=== PATIENT | female | born 1990 | race Caucasian/White ===

== ENCOUNTER 2021-06-12 11:36 | Inpatient (IN) | payer BC ==
[2021-06-12] MEDS ORDERED: Oxytocin/0.9 % Sodium Chloride 30 UNIT/500 ML BAG IV SCH ×2 (13:30→13:45)
[2021-06-12] MEDS: Lactated Ringers 1,000 ML IV SCH ×2 (13:30→23:14)
[2021-06-12] MEDS ORDERED: Misoprostol 25 MCG (1/4 of 100 MCG) Tab VAG PRN (13:30)
[2021-06-12] MEDS ORDERED: Terbutaline 1 MG/ML SDV SUBCUT PRN (13:30)
[2021-06-12] MEDS ORDERED: Butorphanol 1 MG/ML SDV IVPUSH PRN (13:42)
[2021-06-12] MEDS ORDERED: Ondansetron 4 MG/2 ML SDV IVPUSH PRN (13:42)
[2021-06-12] MEDS ORDERED: Carboprost Tromethamine 250 MCG/1 ML Amp IM PRN (13:42)
[2021-06-12] MEDS ORDERED: Nalbuphine 10 MG/1 ML Vial IVPUSH PRN (13:42)
[2021-06-12] MEDS ORDERED: Misoprostol 200 MCG Tab PO PRN (13:42)
[2021-06-12] MEDS ORDERED: Tranexamic Acid 1,000 MG in Sodium Chloride 0.9% 100 ML IV PRN (13:42)
[2021-06-12] MEDS ORDERED: Methylergonovine 0.2 MG/1 ML Amp IM PRN (13:42)
[2021-06-12] MEDS ORDERED: Water For Irrigation,Sterile 1,000 ML Container IRR PRN (13:42)
[2021-06-12] MEDS ORDERED: Lidocaine 1% 20 ML MDV INJECT PRN (13:46)
[2021-06-12] MEDS ORDERED: Misoprostol 25 MCG (1/4 of 100 MCG) Tab PO ONE (14:20)
[2021-06-12] MEDS: Misoprostol 25 MCG (1/4 of 100 MCG) Tab VAG PRN ×2 (14:37→18:31)
[2021-06-12] MEDS ORDERED: ePHEDrine 50 MG/ML SDV IVPUSH PRN ×2 (15:31)
[2021-06-12] MEDS ORDERED: Misoprostol 25 MCG (1/4 of 100 MCG) Tab PO PRN (18:30)
[2021-06-13] MEDS: Lactated Ringers 1,000 ML IV SCH ×2 (04:54→14:09)
[2021-06-13] MEDS: Ropivacaine 200 MG in Premix Bag 1 BAG EPIDUR SCH ×2 (05:46→10:42)
[2021-06-13] MEDS ORDERED: oxyCODONE 5 MG Tab PO PRN (12:33)
[2021-06-13] MEDS ORDERED: Acetaminophen 500 MG Tab PO PRN (12:33)
[2021-06-13] MEDS ORDERED: Ibuprofen 800 MG Tab PO PRN (12:33)
[2021-06-13] MEDS ORDERED: Lanolin 100% Cream 7 GM Tube TOP PRN (12:33)
[2021-06-13] MEDS ORDERED: Benzocaine/Menthol 20%-0.5% Spray 78 GM Cannister TOP PRN (12:33)
[2021-06-13] MEDS ORDERED: Ibuprofen 400 MG Tab PO PRN (12:33)
[2021-06-13] MEDS ORDERED: Witch Hazel Medicated Pads 40/Jar TOP PRN (12:33)
[2021-06-13] MEDS ORDERED: Bisacodyl 10 MG Supp RECTAL PRN (12:33)
[2021-06-13] MEDS ORDERED: Tranexamic Acid 1,000 MG in Sodium Chloride 0.9% 100 ML IV PRN (14:02)
[2021-06-13 14:36] LABS: BLOOD UREA NITROGEN,BUN 5 mg/dL (7.0-18.0); CHLORIDE,CL 103 mmol/L (98-107); GLUCOSE RANDOM 86 mg/dL (74-106); POTASSIUM,K 3.8 mmol/L (3.5-5.1); SODIUM,NA 137 mmol/L (136-145)
[2021-06-13] MEDS: Acetaminophen 500 MG Tab PO PRN ×2 (15:07→21:52)
[2021-06-13] MEDS ORDERED: Levothyroxine 100 MCG Tab PO SCH (21:00)
[2021-06-13] MEDS: Docusate Sodium 100 MG Cap PO PRN (21:54)
[2021-06-14] MEDS: Acetaminophen 500 MG Tab PO PRN (11:44)
[2021-06-14] MEDS ORDERED: Levothyroxine 100 MCG Tab PO SCH (12:00)
[2021-06-14] MEDS: Docusate Sodium 100 MG Cap PO PRN (21:13)
== END 2021-06-15 12:11 | disposition home or self-care (01) | DRG 560 ==
LOC: MW.OBCHECK 11:36 → MW.OB 12:33 → OBSVTOIN 06-13 12:33 → MW.OB 06-13 15:30
PROVIDERS: ADMIT Obstetrics & Gynecology; ATTEND Obstetrics & Gynecology
PROC: 10D07Z6 Extraction of Products of Conception, Vacuum, Via Natural or Artificial Opening (ICD-10-PCS; principal; 2021-06-13)
PROC: 10907ZC Drainage of Amniotic Fluid, Therapeutic from Products of Conception, Via Natural or Artificial Opening (ICD-10-PCS; 2021-06-13)
PROC: 3E0P7VZ Introduction of Hormone into Female Reproductive, Via Natural or Artificial Opening (ICD-10-PCS; 2021-06-13)
PROC: 3E033VJ Introduction of Other Hormone into Peripheral Vein, Percutaneous Approach (ICD-10-PCS; 2021-06-13)
PROC: 0W8NXZZ Division of Female Perineum, External Approach (ICD-10-PCS; 2021-06-13)
PROC: 3E0R3BZ Introduction of Anesthetic Agent into Spinal Canal, Percutaneous Approach (ICD-10-PCS; 2021-06-13)
PROC: 00HU33Z Insertion of Infusion Device into Spinal Canal, Percutaneous Approach (ICD-10-PCS; 2021-06-13)
DX: O48.0 Post-term pregnancy (principal); Z3A.41 41 weeks gestation of pregnancy; Z37.0 Single live birth; O99.284 Endocrine, nutritional and metabolic diseases complicating childbirth; E03.9 Hypothyroidism, unspecified; Z20.822 Contact with and (suspected) exposure to COVID-19
CPT/HCPCS: 01967; 36415; 51702; 59025; 59409; 80053; 84112; 85014; 85018; 85027; 85384; 85610; 86592; 86850; 86900; 86901; 86920; A9270-GY; J0595; J2210; J2405; J2590; J2795; J7120; U0002

== ENCOUNTER 2023-02-05 11:58 | Inpatient (IN) | payer BC ==
[2023-02-05] MEDS ORDERED: Terbutaline 1 MG/ML SDV SUBCUT PRN ×2 (12:52→22:59)
[2023-02-05] MEDS ORDERED: Sodium Chloride 0.9% 20 ML SDV IV PRN (12:52)
[2023-02-05] MEDS ORDERED: Sodium Chloride 0.9% 2.5 ML Syringe FLUSH PRN (12:52)
[2023-02-05] MEDS ORDERED: Misoprostol 25 MCG (1/4 of 100 MCG) Tab VAG PRN ×2 (12:52)
[2023-02-05] MEDS ORDERED: Butorphanol 1 MG/ML SDV IVPUSH PRN (12:52)
[2023-02-05] MEDS ORDERED: Water For Irrigation,Sterile 1,000 ML Container IRR PRN (12:52)
[2023-02-05] MEDS ORDERED: Misoprostol 200 MCG Tab PO PRN (12:52)
[2023-02-05] MEDS ORDERED: Carboprost Tromethamine 250 MCG/1 mL Vial IM PRN (12:52)
[2023-02-05] MEDS ORDERED: Lidocaine 1% 50 ML MDV INJECT PRN (12:52)
[2023-02-05] MEDS ORDERED: Methylergonovine 0.2 MG/1 ML Amp IM PRN (12:52)
[2023-02-05] MEDS ORDERED: Tranexamic Acid IN NACL,ISO-OS 1,000 MG in Premix Bag 1 BAG IV PRN ×2 (12:52)
[2023-02-05] MEDS ORDERED: Sodium Chloride 0.9% 10 ML Syringe FLUSH PRN (12:52)
[2023-02-05] MEDS ORDERED: Oxytocin/0.9 % Sodium Chloride 30 UNIT/500 ML BAG IV SCH ×2 (13:00→23:00)
[2023-02-05] MEDS ORDERED: Nalbuphine 10 MG/0.5 ML Syringe IVPUSH PRN (13:19)
[2023-02-05] MEDS ORDERED: Ondansetron 4 MG/2 ML SDV IVPUSH PRN (13:22)
[2023-02-05] MEDS: Lactated Ringers 1,000 ML IV SCH ×2 (14:00→23:06)
[2023-02-05 14:08] LABS: HEMATOCRIT 37.5 % (37.0-47.0); HEMOGLOBIN 12.5 g/dL (12.0-16.0); MEAN CORPUSCULAR HGB CONC 33.3 g/dL (32.0-36.0); MEAN CORPUSCULAR VOLUME 89.9 fL (83.0-99.0); MEAN PLATELET VOLUME 9.8 fL (9.4-12.3); PLATELET COUNT,PLT 230 K/uL (150-400); RED BLOOD CELL COUNT 4.17 M/uL (4.10-5.30); WHITE BLOOD CELL COUNT,WBC 11.66 K/uL (3.9-11.3)
[2023-02-05] MEDS ORDERED: ePHEDrine 50 MG/ML SDV IVPUSH PRN ×2 (14:43)
[2023-02-05] MEDS ORDERED: Ropivacaine HCl/PF 400 MG in Premix Bag 1 BAG EPIDUR SCH (14:45)
[2023-02-06] MEDS ORDERED: Dexmedetomidine 200 MCG/2 ML SDV ONE (00:13)
[2023-02-06] MEDS: Phenylephrine HCl 0.5 MG/5 ML AMP IVPUSH PRN ×6 (00:37→03:03)
[2023-02-06] MEDS: Lactated Ringers 1,000 ML IV SCH (01:33)
[2023-02-06] MEDS ORDERED: Ibuprofen 400 MG Tab PO PRN (06:56)
[2023-02-06] MEDS ORDERED: Methylergonovine 0.2 MG/1 ML Amp IM PRN (06:56)
[2023-02-06] MEDS ORDERED: Docusate Sodium 100 MG Cap PO PRN (06:56)
[2023-02-06] MEDS ORDERED: Witch Hazel Medicated Pads 40/Jar TOP PRN (06:56)
[2023-02-06] MEDS ORDERED: Bisacodyl 10 MG Supp RECTAL PRN (06:56)
[2023-02-06] MEDS ORDERED: Benzocaine/Menthol 20%-0.5% Spray 78 GM Cannister TOP PRN (06:56)
[2023-02-06] MEDS ORDERED: Lanolin 100% Cream 7 GM Tube TOP PRN (06:56)
[2023-02-06] MEDS ORDERED: Acetaminophen 500 MG Tab PO PRN ×2 (06:56)
[2023-02-06] MEDS: Levothyroxine 100 MCG Tab PO SCH (08:00)
[2023-02-06 08:12] LABS: PH,UMBILICAL ARTERIAL 7.326 (7.18-7.38)
[2023-02-06 08:13] LABS: PH,UMBILICAL VENOUS 7.356 (7.25-7.45)
[2023-02-06] MEDS: Prenatal Multivitamin with Calcium/Folic Acid/Iron Tab PO SCH (09:23)
[2023-02-06] MEDS: Ibuprofen 800 MG Tab PO PRN (09:24)
[2023-02-07 06:18] LABS: HEMATOCRIT 32.6 % (37.0-47.0); HEMOGLOBIN 10.8 g/dL (12.0-16.0)
[2023-02-07] MEDS: Levothyroxine 100 MCG Tab PO SCH (09:00)
[2023-02-07] MEDS: Prenatal Multivitamin with Calcium/Folic Acid/Iron Tab PO SCH (09:14)
[2023-02-07] MEDS: Ibuprofen 800 MG Tab PO PRN (09:18)
[2023-02-08] MEDS: Prenatal Multivitamin with Calcium/Folic Acid/Iron Tab PO SCH (08:55)
== END 2023-02-08 10:23 | disposition home or self-care (01) | DRG 560 ==
LOC: MW.OBCHECK 11:58 → MW.OB 12:03 → MW.OBCHECK 12:56 → MW.OB 12:56 → OBSVTOIN 02-06 06:14 → MW.OB 02-06 09:01
PROVIDERS: ADMIT Obstetrics & Gynecology; ATTEND Obstetrics & Gynecology
PROC: 10E0XZZ Delivery of Products of Conception, External Approach (ICD-10-PCS; principal; 2023-02-06)
PROC: 3E033VJ Introduction of Other Hormone into Peripheral Vein, Percutaneous Approach (ICD-10-PCS; 2023-02-06)
PROC: 3E0P7VZ Introduction of Hormone into Female Reproductive, Via Natural or Artificial Opening (ICD-10-PCS; 2023-02-06)
PROC: 3E0R3BZ Introduction of Anesthetic Agent into Spinal Canal, Percutaneous Approach (ICD-10-PCS; 2023-02-06)
PROC: 00HU33Z Insertion of Infusion Device into Spinal Canal, Percutaneous Approach (ICD-10-PCS; 2023-02-06)
DX: O42.02 Full-term premature rupture of membranes, onset of labor within 24 hours of rupture (principal); Z37.0 Single live birth; O36.63X0 Maternal care for excessive fetal growth, third trimester, not applicable or unspecified; O69.81X0 Labor and delivery complicated by cord around neck, without compression, not applicable or unspecified; Z3A.37 37 weeks gestation of pregnancy; Z86.16 Personal history of COVID-19
CPT/HCPCS: 36415; 51702; 59409; 82803; 84112; 85014; 85018; 85027; 86592; 86850; 86900; 86901; A9270-GY; J2371; J2590; J3490; J7120

== ENCOUNTER 2024-05-09 00:05 | Inpatient (IN) | payer BC ==
[2024-05-09] MEDS ORDERED: Terbutaline 1 MG/ML SDV SUBCUT PRN (00:44)
[2024-05-09] MEDS ORDERED: Sodium Chloride 0.9% 20 ML SDV IV PRN (00:49)
[2024-05-09] MEDS ORDERED: Tranexamic Acid in NACL,ISO-OS 1,000 MG in Premix Bag 1 BAG IV PRN (00:49)
[2024-05-09] MEDS ORDERED: Sodium Chloride 0.9% 2.5 ML Syringe FLUSH PRN (00:49)
[2024-05-09] MEDS ORDERED: Water For Irrigation,Sterile 1,000 ML Container IRR PRN (00:49)
[2024-05-09] MEDS ORDERED: Lidocaine 1% 50 ML MDV INJECT PRN (00:49)
[2024-05-09] MEDS ORDERED: Sodium Chloride 0.9% 10 ML Syringe FLUSH PRN (00:49)
[2024-05-09] MEDS ORDERED: Misoprostol 200 MCG Tab PO PRN (00:49)
[2024-05-09] MEDS ORDERED: Methylergonovine 0.2 MG/1 ML Amp IM PRN (00:49)
[2024-05-09] MEDS ORDERED: Butorphanol 2 MG/ML SDV IVPUSH PRN (00:49)
[2024-05-09] MEDS ORDERED: Carboprost Tromethamine 250 MCG/1 mL Vial IM PRN (00:49)
[2024-05-09 00:56] LABS: HEMOGLOBIN 10.4 g/dL (12.0-16.0); MEAN CORPUSCULAR HEMOGLOBIN 28.3 pg (28.0-32.0); MEAN CORPUSCULAR HGB CONC 33.5 g/dL (32.0-36.0); MEAN CORPUSCULAR VOLUME 84.5 fL (83.0-99.0); PLATELET COUNT,PLT 268 K/uL (150-400); RED BLOOD CELL COUNT 3.67 M/uL (4.10-5.30); WHITE BLOOD CELL COUNT,WBC 7.92 K/uL (3.9-11.3)
[2024-05-09] MEDS ORDERED: Oxytocin/0.9 % Sodium Chloride 30 UNIT/500 ML BAG IV SCH (01:00)
[2024-05-09] MEDS: Misoprostol 25 MCG (1/4 of 100 MCG) Tab VAG SCH ×2 (01:39→06:24)
[2024-05-09] MEDS: Lactated Ringers 1,000 ML IV SCH (10:33)
[2024-05-09] MEDS ORDERED: Bupivacaine 0.5% 10 ML SDV ONE (10:53)
[2024-05-09] MEDS ORDERED: Ropivacaine HCl/PF 200 ML ONE (10:54)
[2024-05-09] MEDS ORDERED: Phenylephrine HCl In 0.9% NaCl 1 MG/10 ML Syringe ONE (10:54)
[2024-05-09] MEDS: Ropivacaine HCl/PF 400 MG in Premix Bag 1 BAG EPIDUR SCH (11:12)
[2024-05-09] MEDS ORDERED: Phenylephrine HCl In 0.9% NaCl 1 MG/10 ML Syringe IVPUSH PRN (11:23)
[2024-05-09] MEDS ORDERED: Bupivacaine 0.5% 10 ML SDV INJECT ONE (11:23)
[2024-05-09] MEDS ORDERED: ePHEDrine 50 MG/ML SDV IM PRN (11:23)
[2024-05-09] MEDS ORDERED: ePHEDrine 50 MG/ML SDV IVPUSH PRN (11:23)
[2024-05-09] MEDS ORDERED: dexmedeTOMIDine HCl 200 MCG/2 ML SDV EPIDUR SCH (11:30)
[2024-05-09] MEDS: Oxytocin/0.9 % Sodium Chloride 30 UNIT/500 ML BAG IV SCH (12:15)
[2024-05-09] MEDS: Ondansetron 4 MG/2 ML SDV IVPUSH PRN (16:16)
[2024-05-09] MEDS ORDERED: oxyCODONE 5 MG Tab PO PRN (17:54)
[2024-05-09] MEDS ORDERED: Lanolin 100% Cream 7 GM Tube TOP PRN (17:54)
[2024-05-09] MEDS ORDERED: Docusate Sodium 100 MG Cap PO PRN (17:54)
[2024-05-09 18:34] LABS: PH,UMBILICAL ARTERIAL 7.167 (7.18-7.38); PH,UMBILICAL VENOUS 7.178 (7.25-7.45)
[2024-05-09] MEDS: Acetaminophen 500 MG Tab PO PRN (22:50)
[2024-05-09] MEDS: Ibuprofen 800 MG Tab PO PRN (22:50)
[2024-05-09] MEDS: Witch Hazel Medicated Pads 40/Jar TOP PRN (22:51)
[2024-05-09] MEDS: Benzocaine/Menthol 20%-0.5% Spray 78 GM Cannister TOP PRN (22:51)
[2024-05-10 05:37] LABS: HEMOGLOBIN 8.8 g/dL (12.0-16.0)
[2024-05-10] MEDS: Sodium Ferric Gluconate Cmplex 125 MG in Sodium Chloride 0.9% 100 ML IV ONE (10:09)
== END 2024-05-10 19:57 | disposition home or self-care (01) | DRG 560 ==
LOC: MW.OB 00:05 → OBSVTOIN 17:38 → MW.OB 22:08
PROVIDERS: ADMIT Obstetrics & Gynecology; ATTEND Obstetrics & Gynecology
PROC: 10E0XZZ Delivery of Products of Conception, External Approach (ICD-10-PCS; principal; 2024-05-09)
PROC: 0HQ9XZZ Repair Perineum Skin, External Approach (ICD-10-PCS; 2024-05-09)
PROC: 10907ZC Drainage of Amniotic Fluid, Therapeutic from Products of Conception, Via Natural or Artificial Opening (ICD-10-PCS; 2024-05-09)
PROC: 3E0R3BZ Introduction of Anesthetic Agent into Spinal Canal, Percutaneous Approach (ICD-10-PCS; 2024-05-09)
PROC: 00HU33Z Insertion of Infusion Device into Spinal Canal, Percutaneous Approach (ICD-10-PCS; 2024-05-09)
DX: O66.3 Obstructed labor due to other abnormalities of fetus (principal); Z37.0 Single live birth; O99.02 Anemia complicating childbirth; D50.9 Iron deficiency anemia, unspecified; O70.0 First degree perineal laceration during delivery; Z3A.38 38 weeks gestation of pregnancy
CPT/HCPCS: 36415; 51702; 59025; 59409; 82803; 85014; 85018; 85027; 86592; 86850; 86900; 86901; A9270-GY; J0665; J2371; J2405; J2590; J2795; J2916; J7120